=== PATIENT | female | born 1930 | race Two or more races ===

== ENCOUNTER 2019-03-23 13:48 | Emergency (ER) | payer MEDICARE, OTHER ==
[~2019-03-23] VITALS: Ht 154.9 cm; Wt 68.0 kg
--- NOTE | 2019-03-23 14:28 | Emergency Room Report ---
History of Present Illness General Chief Complaint: Headache Source: Patient Present Illness HPI 88-year-old female past history of hypertension, hyperlipidemia, diabetes, presents with headache similar to previous headaches, left blurry vision, started 2-1/2 days ago, no aggravating or alleviating factors he she endorses a throbbing headache, no radiation of pain, it is all localized to her left eye and face she denies any nausea vomiting, chest pain shortness of breath Allergies: Coded Allergies: No Known Allergies (Unverified , 03/23/19) Patient History Past Medical History: see triage record Reviewed Nursing Documentation: PMH: Agreed; PSxH: Agreed Nursing Documentation-PMH Past Medical History: No History, Except For Hx Cardiac Problems: No - OA Hx Hypertension: Yes Review of Systems Constitutional: Denies: chills, fever Eye: Reports: blurred vision; Denies: double vision ENT: Denies: throat pain, nasal discharge Respiratory: Denies: cough, shortness of breath Cardiovascular: Denies: chest pain, palpitations Gastrointestinal: Denies: abdominal pain, diarrhea, nausea, vomiting Genitourinary: Denies: dysuria, pain Musculoskeletal: Denies: back pain, muscle pain Skin: Denies: rash, lesions Neurological: Reports: headache; Denies: focal weakness Hematologic/Lymphatic: Denies: easy bleeding, easy bruising All Other Systems: negative except mentioned in HPI Physical Exam Vital Signs Date Time Temp Pulse Resp B/P (MAP) Pulse Ox O2 Delivery O2 Flow Rate FiO2 03/23/19 13:57 98.4 46 16 149/50 (83) 93 Room Air Sp02 EP Interpretation: reviewed, normal General Appearance: well appearing, no apparent distress, alert Head: normocephalic, atraumatic Eyes: bilateral eye PERRL, bilateral eye EOMI, bilateral eye other - Pressure right eye 17, pressure left eye 18 ENT: uvula midline, moist mucus membranes Neck: supple, thyroid normal, supple/symm/no masses Respiratory: lungs clear, no respiratory distress, no retraction, no accessory muscle use Cardiovascular #1: normal peripheral pulses, regular rate, rhythm, no edema, no gallop, no murmur Gastrointestinal: non tender, soft, no guarding, no rebound Musculoskeletal: normal inspection Neurologic: alert, oriented x3, scaffolding helper III-XII nml as tested - Patient with blurry vision on the left eye otherwise unremarkable cranial nerves, normal gait , speech normal, no pronator, other - [id number] testing intact, 5 out of 5 strength upper and lower extremities Romberg negative Psychiatric: mood/affect normal Skin: no rash, warm/dry Medical Decision Making Diagnostic Impression: Primary Impression: Headache ER Course Patient presents with blurred vision of the left eye after a VELA, patient follows with an cook fishing vessel, patient states she is going to see her cook fishing vessel soon, within a couple of days, low suspicion for temporal arteritis however we will order ESR CRP, patient's headache improved with a headache cocktail, low suspicion for SAH, most likely a complex migraine. Visual paulson are now intact after migraine cocktail Reevaluation 4:52 PM, patient counseled to follow-up with an cook fishing vessel, ESR is elevated however there is a low suspicion for temporal arteritis, patient with no tenderness overlying the temporal artery. no visual paulson issues, patient has had these similar symptoms and follows with optho Joint decision-making was made with the family, they prefer follow-up with the cook fishing vessel few days no visual field defects Laboratory Tests Test 03/23/19 15:13 03/23/19 16:00 White Blood Count 5.2 K/UL (4.8-10.8) Red Blood Count 3.46 M/UL (4.20-5.40) L Hemoglobin 11.9 G/DL (12.0-16.0) L Hematocrit 34.7 % (37.0-47.0) L Mean Corpuscular Volume 100 FL (80-99) H Mean Corpuscular Hemoglobin 34.3 PG (27.0-31.0) H Mean Corpuscular Hemoglobin Concent 34.2 G/DL (32.0-36.0) Red Cell Distribution Width 12.2 % (11.6-14.8) Platelet Count 218 K/UL (150-450) Mean Platelet Volume 6.2 FL (6.5-10.1) L Neutrophils (%) (Auto) 62.2 % (45.0-75.0) Lymphocytes (%) (Auto) 18.2 % (20.0-45.0) L Monocytes (%) (Auto) 14.4 % (1.0-10.0) H Eosinophils (%) (Auto) 3.9 % (0.0-3.0) H Basophils (%) (Auto) 1.3 % (0.0-2.0) Erythrocyte Sedimentation Rate 75 MM/HR (0-30) H Prothrombin Time 10.5 SEC (9.30-11.50) Prothrombin Time INR 1.0 (0.9-1.1) PTT 27 SEC (23-33) Sodium Level 136 MMOL/L (136-145) Potassium Level 3.8 MMOL/L (3.5-5.1) Chloride Level 100 MMOL/L (98-107) Carbon Dioxide Level 29 MMOL/L (21-32) Anion Gap 8 mmol/L (5-15) Blood Urea Nitrogen 29 mg/dL (7-18) H Creatinine 1.3 MG/DL (0.55-1.30) Estimate Glomerular Filtration Rate mL/min (>60) Glucose Level 102 MG/DL (74-106) Calcium Level 9.2 MG/DL (8.5-10.1) Total Bilirubin 0.4 MG/DL (0.2-1.0) Aspartate Amino Transferase (AST) 23 U/L (15-37) Alanine Aminotransferase (ALT) 25 U/L (12-78) Alkaline Phosphatase 90 U/L (46-116) C-Reactive Protein, Quantitative 0.8 mg/dL (0.00-0.90) Total Protein 7.6 G/DL (6.4-8.2) Albumin 3.6 G/DL (3.4-5.0) Globulin 4.0 g/dL Albumin/Globulin Ratio 0.9 (1.0-2.7) L Urine Color Pale yellow Urine Appearance Clear Urine pH 7 (4.5-8.0) Urine Specific [place] 1.005 (1.005-1.035) Urine Protein Negative (NEGATIVE) Urine Glucose (UA) Negative (NEGATIVE) Urine Ketones Negative (NEGATIVE) Urine Blood Negative (NEGATIVE) Urine Nitrite Negative (NEGATIVE) Urine Bilirubin Negative (NEGATIVE) Urine Urobilinogen Normal MG/DL (0.0-1.0) Urine Leukocyte Esterase Negative (NEGATIVE) EKG Diagnostic Results EKG Time: 14:36 EP Interpretation: Sinus bradycardia, first-degree AV block, rate 47, no acute ST elevations Rate: bradycardiac Rhythm: NSR ST Segments: no acute changes Rhythm Strip Diag. Results Rhythm Strip Time: 16:53 EP Interpretation: yes Rate: 46 Rhythm: no PVC's, no ectopy, other - sinus bradycardia CT/MRI/US Diagnostic Results CT/MRI/US Diagnostic Results : Imaging Test Ordered: Ct Brain Impression Impression: No acute intracranial bleed, mass effect or edema. Moderate atrophy of the brain. Evidence of chronic small vessel disease involving white matter tracts. Sinusitis The CT scanner at [facility] is accredited by the [employer] and the scans are performed using dose optimization techniques as appropriate to a performed exam including Automatic Exposure control. Last Vital Signs Date Time Temp Pulse Resp B/P (MAP) Pulse Ox O2 Delivery O2 Flow Rate FiO2 03/23/19 13:57 98.4 46 16 149/50 (83) 93 Room Air Disposition: HOME, SELF-CARE Condition: Stable Scripts Riboflavin (RIBOFLAVIN) 100 Mg Tablet 400 MG PO DAILY, #120 TAB Prov: Mahendra Bojorquez M.D. 03/23/19 Referrals: [facility] Patient Instructions: General Headache Without Cause Additional Instructions: The patient was provided with discharge instructions, notified to follow-up with a primary care doctor and or specialist in the next 24-48 hours, and to return to the ED if they have worsening of their symptoms. Please note that this report is being documented using [employer] technology. This can lead to erroneous entry secondary to incorrect interpretation by the dictating instrument. Please follow-up with your current cook fishing vessel within 24-48 hours Mahendra Bojorquez M.D. Mar 23, 2019 14:28
[2019-03-23] MEDS ORDERED: Metoclopramide 10mg/2ml Inj IVP ONE (14:30)
[2019-03-23 14:36] VITALS: BP 149/50
[2019-03-23] MEDS ORDERED: Tetracaine 0.5% Opth 4ml Soln LEFT EYE ONE (14:45)
[2019-03-23] MEDS ORDERED: Tetracaine 0.5% Opth 4ml Soln RIGHT EYE ONE (14:45)
[2019-03-23] MEDS ORDERED: ELIQUIS2.5 MG PO (15:17)
[2019-03-23] MEDS ORDERED: ZANTAC150 MG ORAL (15:17)
[2019-03-23] MEDS ORDERED: HYDROCHLOROTH12.5 M2 ORAL (15:17)
[2019-03-23] MEDS ORDERED: FUROSEMIDE40 MG/5 ML ORAL (15:17)
[2019-03-23] MEDS ORDERED: SIMVASTATIN20 MG ORAL (15:17)
[2019-03-23] MEDS ORDERED: PANTOPRAZOLE SO20 MG ORAL (15:17)
[2019-03-23] MEDS ORDERED: AMIODARONE HCL400 M1 ORAL (15:17)
[2019-03-23] MEDS ORDERED: COZAAR50 MG ORAL (15:17)
[2019-03-23] MEDS ORDERED: POTASSIUM CHLO10 ME2 PO (15:17)
[2019-03-23] MEDS ORDERED: METOPROLOL TART50 MG ORAL (15:17)
--- NOTE | 2019-03-23 15:24 | Diagnostic Imaging Report ---
Indication: Headache Technique: Contiguous 5 mm thick transaxial imaging of the head obtained in a Siemens Sensation [address] scanner. Soft tissue and bone windows generated. Automatic Exposure Control was utilized. Total Dose length Product (DLP): 1319.[address] Dose Index Volume (CTDIvol): 70.38 mGy Comparison: none Findings: There is moderate prominence of the ventricles, basal cisterns, and cerebral sulci consistent with atrophy. Moderate, nonspecific, white matter hypoattenuation is noted throughout the brain consistent with chronic small vessel disease. There is no midline shift, edema, acute hemorrhage, mass effect, or abnormal extra-axial fluid collections. Bones are unremarkable. Opacification of the paranasal sinuses especially ethmoid region noted. Impression: No acute intracranial bleed, mass effect or edema. Moderate atrophy of the brain. Evidence of chronic small vessel disease involving white matter tracts. Sinusitis The CT scanner at [facility] is accredited by the [employer] and the scans are performed using dose optimization techniques as appropriate to a performed exam including Automatic Exposure control.
[2019-03-23 15:52] LABS: BASOPHILS % (AUTO) 1.3 % (0.0-2.0); EOSINOPHILS % (AUTO) 3.9 % (0.0-3.0); HEMATOCRIT 34.7 % (37.0-47.0); HEMOGLOBIN 11.9 G/DL (12.0-16.0); LYMPHOCYTES % (AUTO) 18.2 % (20.0-45.0); MEAN CORPUSCULAR VOLUME 100 FL (80-99); MONOCYTES % (AUTO) 14.4 % (1.0-10.0); NEUTROPHILS % (AUTO) 62.2 % (45.0-75.0); PLATELET COUNT 218 K/UL (150-450); RED BLOOD COUNT 3.46 M/UL (4.20-5.40); RED CELL DISTRIBUTION WIDTH 12.2 % (11.6-14.8); WHITE BLOOD COUNT 5.2 K/UL (4.8-10.8)
[2019-03-23 15:57] LABS: ANION GAP 8 mmol/L (5-15); BLOOD UREA NITROGEN 29 mg/dL (7-18); CALCIUM 9.2 MG/DL (8.5-10.1); CARBON DIOXIDE 29 MMOL/L (21-32); CHLORIDE 100 MMOL/L (98-107); CREATININE 1.3 MG/DL (0.55-1.30); POTASSIUM 3.8 MMOL/L (3.5-5.1); SODIUM 136 MMOL/L (136-145)
[2019-03-23 16:03] LABS: ALANINE AMINOTRANSFERASE 25 U/L (12-78); ALBUMIN 3.6 G/DL (3.4-5.0); ALBUMIN/GLOBULIN RATIO 0.9 (1.0-2.7); ALKALINE PHOSPHATASE 90 U/L (46-116); ASPARTATE AMINO TRANSFERASE 23 U/L (15-37); BILIRUBIN,TOTAL 0.4 MG/DL (0.2-1.0)
[2019-03-23 16:47] LABS: APPEARANCE,URINE CLEAR; BILIRUBIN, URINE NEGATIVE (NEGATIVE); COLOR,URINE PALE YELLOW; GLUCOSE, URINE (UA) NEGATIVE (NEGATIVE); KETONES,URINE NEGATIVE (NEGATIVE); LEUKOCYTE ESTERASE ,URINE NEGATIVE (NEGATIVE); NITRITE,URINE NEGATIVE (NEGATIVE); PH,URINE 7 (4.5-8.0); PROTEIN,URINE NEGATIVE (NEGATIVE); UROBILINOGEN,URINE NORMAL MG/DL (0.0-1.0)
[2019-03-23] MEDS ORDERED: RIBOFLAVIN100 MG PO (16:57)
[2019-03-23 17:05] VITALS: BP 168/51
--- NOTE | 2019-03-23 17:07 | NUR ---
ED Nurse Note: pt c/o blurry vision to left side erm eval done blood an urie sent .
--- NOTE | 2019-03-23 17:08 | NUR ---
ED Nurse Note: Pt is medicatred and cleared by health care Provider for discharge. DC instructions/prescription was given and explained to pt and verbalized understanding of teachings. All medical deviecs such as ID band removed. Pt is AAO x4, ambulatory and left with all personal belongings.
--- NOTE | 2019-03-23 17:15 | NUR ---
ED Nurse Note: Dr. Garzon aware of pt's HR and BP and is ok to d/c pt no nsg orders.
--- NOTE | 2019-03-28 20:50 | Cardiology Report ---
APPROVED REPORT EKG Measurement Heart [id number] IN [id number] Sinus bradycardia with 1st degree AV block Left anterior fascicular block Possible Anterior infarct, age undetermined Abnormal ECG
== END 2019-03-23 17:16 | disposition home or self-care (01) ==
LOC: EMR 15:47
DX: R51 Headache (principal); I10 Essential (primary) hypertension; M19.90 Unspecified osteoarthritis, unspecified site; E78.5 Hyperlipidemia, unspecified; E11.9 Type 2 diabetes mellitus without complications
CPT/HCPCS: 36415; 70450; 80053; 81003; 82962; 85025; 85610; 85651; 85730; 86140; 93005; 96361; 96374; 99284; J2765